=== PATIENT | male | born 1960 | race Caucasian/White ===

== ENCOUNTER 2018-10-24 10:51 | Outpatient (REF) | payer BC, SELFPAY ==
[2018-10-24 22:20] LABS: Anion Gap 12.2 mmol/L (3-11); BUN 13 mg/dL (7-18); CO2 24.8 mmol/L (21.0-32.0); CREATININE 0.76 mg/dL (0.70-1.30); Calcium 9.9 mg/dL (8.5-10.1); Chloride 103 mmol/L (98-107); Glucose 106 mg/dL (70-100); Potassium 4.1 mmol/L (3.5-5.1); Sodium 140 mmol/L (136-145)
== END 2018-10-24 11:11 ==
LOC: NCHCN 10:51
PROVIDERS: PCP Nurse Practitioner Family; Visit Provider Registered Nurse
DX: I10 Essential (primary) hypertension (principal)
CPT/HCPCS: 80048

== ENCOUNTER 2019-05-22 10:21 | Outpatient (REF) | payer BC, SELFPAY ==
[2019-05-22 22:48] LABS: Anion Gap 12.3 mmol/L (3-11); BUN 19 mg/dL (7-18); CO2 26.7 mmol/L (21.0-32.0); CREATININE 0.84 mg/dL (0.70-1.30); Calcium 9.6 mg/dL (8.5-10.1); Chloride 104 mmol/L (98-107); Glucose 149 mg/dL (74-106); Potassium 3.9 mmol/L (3.5-5.1); Sodium 143 mmol/L (136-145)
== END 2019-05-22 10:41 ==
LOC: NCHCN 10:21
PROVIDERS: PCP Nurse Practitioner Family; Visit Provider Registered Nurse
DX: E66.9 Obesity, unspecified (principal)
CPT/HCPCS: 80048

== ENCOUNTER 2019-09-20 20:13 | Outpatient (REF) | payer BC, SELFPAY ==
[2019-09-20 21:06] LABS: Uric Acid 6.5 mg/dL (3.5-7.2)
== END 2019-09-20 20:33 ==
LOC: NCHCN 20:13
PROVIDERS: PCP Nurse Practitioner Family; Visit Provider Internal Medicine
DX: M77.9 Enthesopathy, unspecified (principal)
CPT/HCPCS: 84550

== ENCOUNTER 2020-12-24 10:46 | Outpatient (REF) | payer BC, SELFPAY ==
[2020-12-24 14:25] LABS: COMMENT (LAB VIEW ONLY) 55.86 mg/dL; Microalb ug/mg Crea 16.3 ug/mg Cr
== END 2020-12-24 10:47 | disposition home or self-care (01) ==
LOC: NCHCN 10:46
PROVIDERS: PCP Nurse Practitioner Family; Visit Provider Registered Nurse
DX: E11.9 Type 2 diabetes mellitus without complications (principal)
CPT/HCPCS: 82043; 82570

== ENCOUNTER 2020-12-30 15:09 | Outpatient (REF) | payer BC, SELFPAY ==
[2020-12-30 13:24] LABS: Calculated LDL 56 mg/dL (<100); Cholesterol 119 mg/dL (<200); HDL Cholesterol 31 mg/dL (40-60); Triglyceride 160 mg/dL (<150)
[2020-12-30 13:43] LABS: Hemoglobin A1C 7.6 % (<5.7)
== END 2020-12-30 15:10 | disposition home or self-care (01) ==
LOC: NCHCN 15:09
PROVIDERS: PCP Nurse Practitioner Family; Visit Provider Registered Nurse
DX: E78.5 Hyperlipidemia, unspecified (principal); E11.9 Type 2 diabetes mellitus without complications; I10 Essential (primary) hypertension
CPT/HCPCS: 80061; 83036

== ENCOUNTER 2021-06-17 11:11 | Outpatient (REF) | payer BC, SELFPAY ==
[2021-06-17 15:15] LABS: Albumin 4.2 g/dL (3.4-5.0); Alkaline Phosphatase 170 U/L (46-116); Anion Gap 12.3 mmol/L (3-11); BUN 24 mg/dL (7-18); Bilirubin, Total 0.5 mg/dL (0.2-1.0); CO2 26.7 mmol/L (21.0-32.0); CREATININE 0.9 mg/dL (0.70-1.30); Calcium 9.6 mg/dL (8.5-10.1); Chloride 103 mmol/L (98-107); Glucose 171 mg/dL (74-106); Potassium 3.6 mmol/L (3.5-5.1); Sodium 142 mmol/L (136-145); Total Protein 7.8 g/dL (6.4-8.2)
[2021-06-17 15:48] LABS: ALT 108 U/L (16-63); AST 46 U/L (15-37)
== END 2021-06-17 11:12 | disposition home or self-care (01) ==
LOC: NCHCN 11:11
PROVIDERS: PCP Nurse Practitioner Family; Visit Provider Registered Nurse
DX: I10 Essential (primary) hypertension (principal); E66.9 Obesity, unspecified
CPT/HCPCS: 80053

== ENCOUNTER 2021-07-01 17:05 | Outpatient (REF) | payer BC, SELFPAY ==
[2021-07-01 22:09] LABS: Anion Gap 12.1 mmol/L (3-11); BUN 20 mg/dL (7-18); CO2 27.9 mmol/L (21.0-32.0); CREATININE 0.8 mg/dL (0.70-1.30); Calcium 9.8 mg/dL (8.5-10.1); Chloride 102 mmol/L (98-107); Glucose 91 mg/dL (74-106); Sodium 142 mmol/L (136-145)
[2021-07-01 22:26] LABS: Potassium 2.7 mmol/L (3.5-5.1)
== END 2021-07-01 17:06 | disposition home or self-care (01) ==
LOC: NCHCN 17:05
PROVIDERS: PCP Nurse Practitioner Family; Visit Provider Registered Nurse
DX: E11.9 Type 2 diabetes mellitus without complications (principal); I10 Essential (primary) hypertension; R74.8 Abnormal levels of other serum enzymes
CPT/HCPCS: 80048

== ENCOUNTER 2021-07-03 20:17 | Outpatient (REF) | payer BC, SELFPAY ==
[2021-07-03 20:54] LABS: Anion Gap 11.5 mmol/L (3-11); BUN 21 mg/dL (7-18); CO2 27.5 mmol/L (21.0-32.0); CREATININE 0.9 mg/dL (0.70-1.30); Calcium 9.9 mg/dL (8.5-10.1); Chloride 105 mmol/L (98-107); Glucose 96 mg/dL (74-106); Potassium 3.2 mmol/L (3.5-5.1); Sodium 144 mmol/L (136-145)
== END 2021-07-03 20:18 | disposition home or self-care (01) ==
LOC: NCHCN 20:17
PROVIDERS: PCP Nurse Practitioner Family; Visit Provider Registered Nurse
DX: E87.6 Hypokalemia (principal)
CPT/HCPCS: 80048

== ENCOUNTER 2021-07-22 18:08 | Outpatient (REF) | payer BC, SELFPAY ==
[2021-07-22 20:52] LABS: Anion Gap 9.5 mmol/L (3-11); BUN 22 mg/dL (7-18); CO2 30.5 mmol/L (21.0-32.0); CREATININE 0.9 mg/dL (0.70-1.30); Calcium 9.9 mg/dL (8.5-10.1); Chloride 104 mmol/L (98-107); Glucose 98 mg/dL (74-106); Potassium 3.2 mmol/L (3.5-5.1); Sodium 144 mmol/L (136-145)
== END 2021-07-22 18:09 | disposition home or self-care (01) ==
LOC: NCHCN 18:08
PROVIDERS: PCP Nurse Practitioner Family; Visit Provider Registered Nurse
DX: E87.6 Hypokalemia (principal)
CPT/HCPCS: 80048

== ENCOUNTER 2021-09-16 18:05 | Outpatient (REF) | payer BC, SELFPAY ==
[2021-09-16 23:12] LABS: Albumin 4.3 g/dL (3.4-5.0); Alkaline Phosphatase 124 U/L (46-116); Anion Gap 8.4 mmol/L (3-11); BUN 23 mg/dL (7-18); Bilirubin, Total 0.6 mg/dL (0.2-1.0); CO2 28.6 mmol/L (21.0-32.0); CREATININE 0.8 mg/dL (0.70-1.30); Calcium 9.5 mg/dL (8.5-10.1); Chloride 103 mmol/L (98-107); Glucose 131 mg/dL (74-106); Potassium 3.1 mmol/L (3.5-5.1); Sodium 140 mmol/L (136-145); Total Protein 7.3 g/dL (6.4-8.2)
[2021-09-16 23:32] LABS: ALT 74 U/L (16-63); AST 50 U/L (15-37)
== END 2021-09-16 18:06 | disposition home or self-care (01) ==
LOC: NCHCN 18:05
PROVIDERS: PCP Nurse Practitioner Family; Visit Provider Registered Nurse
DX: E11.9 Type 2 diabetes mellitus without complications (principal); E87.6 Hypokalemia; I10 Essential (primary) hypertension; R74.8 Abnormal levels of other serum enzymes
CPT/HCPCS: 80053

== ENCOUNTER 2021-09-28 15:42 | Outpatient (REF) | payer BC, SELFPAY ==
[2021-09-28 21:32] LABS: Potassium 3.2 mmol/L (3.5-5.1)
== END 2021-09-28 15:43 | disposition home or self-care (01) ==
LOC: NCHCN 15:42
PROVIDERS: PCP Nurse Practitioner Family; Visit Provider Registered Nurse
DX: E87.6 Hypokalemia (principal)
CPT/HCPCS: 84132

== ENCOUNTER 2021-10-29 16:26 | Outpatient (REF) | payer BC, SELFPAY ==
[2021-10-29 20:23] LABS: Potassium 3.2 mmol/L (3.5-5.1)
== END 2021-10-29 16:27 | disposition home or self-care (01) ==
LOC: NCHCN 16:26
PROVIDERS: PCP Nurse Practitioner Family; Visit Provider Registered Nurse
DX: E87.6 Hypokalemia (principal)
CPT/HCPCS: 84132

== ENCOUNTER 2021-11-19 18:54 | Outpatient (REF) | payer BC, SELFPAY ==
[2021-11-19 14:59] LABS: Anion Gap 9.9 mmol/L (3-11); BUN 21 mg/dL (7-18); CO2 27.1 mmol/L (21.0-32.0); CREATININE 0.9 mg/dL (0.70-1.30); Calcium 9.5 mg/dL (8.5-10.1); Chloride 102 mmol/L (98-107); Glucose 148 mg/dL (74-106); Potassium 3.4 mmol/L (3.5-5.1); Sodium 139 mmol/L (136-145)
== END 2021-11-19 18:55 | disposition home or self-care (01) ==
LOC: NCHCN 18:54
PROVIDERS: PCP Nurse Practitioner Family; Visit Provider Registered Nurse
DX: E87.6 Hypokalemia (principal)
CPT/HCPCS: 80048

== ENCOUNTER 2021-12-01 17:25 | Outpatient (REF) | payer BC, SELFPAY ==
[2021-12-03 10:16] LABS: COVID-19 RT-PCR UVMMC Result Negative (Negative)
== END 2021-12-01 17:26 | disposition home or self-care (01) ==
LOC: NCHCN 17:25
PROVIDERS: PCP Nurse Practitioner Family; Visit Provider Registered Nurse
DX: Z20.822 Contact with and (suspected) exposure to COVID-19 (principal); J06.9 Acute upper respiratory infection, unspecified
CPT/HCPCS: U0003

== ENCOUNTER 2021-12-23 18:20 | Outpatient (REF) | payer BC, SELFPAY ==
[2021-12-23 22:06] LABS: ALT 72 U/L (16-63); AST 44 U/L (15-37); Albumin 4.3 g/dL (3.4-5.0); Alkaline Phosphatase 105 U/L (46-116); Anion Gap 10.9 mmol/L (3-11); BUN 21 mg/dL (7-18); Bilirubin, Total 0.6 mg/dL (0.2-1.0); CO2 28.1 mmol/L (21.0-32.0); CREATININE 0.8 mg/dL (0.70-1.30); Calcium 9.3 mg/dL (8.5-10.1); Chloride 103 mmol/L (98-107); Glucose 94 mg/dL (74-106); Potassium 3.2 mmol/L (3.5-5.1); Sodium 142 mmol/L (136-145); Total Protein 7.8 g/dL (6.4-8.2)
[2021-12-23 22:14] LABS: COMMENT (LAB VIEW ONLY) 103.85 mg/dL; Microalb ug/mg Crea 26.8 ug/mg Cr
[2021-12-23 22:16] LABS: Hemoglobin A1C 6.3 % (<5.7)
== END 2021-12-23 18:21 | disposition home or self-care (01) ==
LOC: NCHCN 18:20
PROVIDERS: PCP Nurse Practitioner Family; Visit Provider Registered Nurse
DX: I10 Essential (primary) hypertension (principal); E11.9 Type 2 diabetes mellitus without complications; E66.9 Obesity, unspecified
CPT/HCPCS: 80053; 82043; 82570; 83036

== ENCOUNTER 2022-01-13 15:16 | Outpatient (REF) | payer BC, SELFPAY ==
[2022-01-13 21:24] LABS: Anion Gap 5.1 mmol/L (3-11); BUN 20 mg/dL (7-18); CO2 28.9 mmol/L (21.0-32.0); CREATININE 0.9 mg/dL (0.70-1.30); Calcium 9.3 mg/dL (8.5-10.1); Chloride 105 mmol/L (98-107); Estimated GFR 98.38 (mL/min/1.73m2); Glucose 89 mg/dL (74-106); Potassium 3.8 mmol/L (3.5-5.1); Sodium 139 mmol/L (136-145)
== END 2022-01-13 15:17 | disposition home or self-care (01) ==
LOC: NCHCN 15:16
PROVIDERS: PCP Nurse Practitioner Family; Visit Provider Registered Nurse
DX: E87.6 Hypokalemia (principal)
CPT/HCPCS: 80048

== ENCOUNTER 2022-02-22 15:30 | Outpatient (REF) | payer BC, SELFPAY ==
[2022-02-22 21:22] LABS: Potassium 3.9 mmol/L (3.5-5.1)
== END 2022-02-22 15:31 | disposition home or self-care (01) ==
LOC: NCHCN 15:30
PROVIDERS: PCP Nurse Practitioner Family; Visit Provider Registered Nurse
DX: E87.6 Hypokalemia (principal)
CPT/HCPCS: 84132

== ENCOUNTER 2022-07-14 17:01 | Outpatient (REF) | payer BC, SELFPAY ==
[2022-07-14 21:01] LABS: ALT 69 U/L (16-63); AST 38 U/L (15-37); Albumin 4.3 g/dL (3.4-5.0); Alkaline Phosphatase 141 U/L (46-116); Anion Gap 7.6 mmol/L (3-11); BUN 17 mg/dL (7-18); Bilirubin, Total 0.6 mg/dL (0.2-1.0); CO2 28.4 mmol/L (21.0-32.0); CREATININE 0.8 mg/dL (0.70-1.30); Calcium 9.7 mg/dL (8.5-10.1); Chloride 105 mmol/L (98-107); Estimated GFR 101.32 (mL/min/1.73m2); Glucose 104 mg/dL (74-106); Potassium 3.8 mmol/L (3.5-5.1); Sodium 141 mmol/L (136-145); Total Protein 7.8 g/dL (6.4-8.2)
== END 2022-07-14 17:02 | disposition home or self-care (01) ==
LOC: NCHCN 17:01
PROVIDERS: PCP Nurse Practitioner Family; Visit Provider Registered Nurse
DX: E87.6 Hypokalemia (principal); E66.8 Other obesity
CPT/HCPCS: 80053

== ENCOUNTER 2022-10-13 18:09 | Outpatient (REF) | payer BC, SELFPAY ==
[2022-10-13 21:55] LABS: COMMENT (LAB VIEW ONLY) 121.11 mg/dL
== END 2022-10-13 18:10 | disposition home or self-care (01) ==
LOC: NCHCN 18:09
PROVIDERS: PCP Nurse Practitioner Family; Visit Provider Registered Nurse
DX: E11.9 Type 2 diabetes mellitus without complications (principal)
CPT/HCPCS: 82043; 82570

== ENCOUNTER 2022-11-17 16:56 | Outpatient (REF) | payer BC, SELFPAY ==
[2022-11-17 21:34] LABS: ALT 88 U/L (16-63); Albumin 4.2 g/dL (3.4-5.0); Alkaline Phosphatase 153 U/L (46-116); Anion Gap 10.4 mmol/L (3-11); BUN 22 mg/dL (7-18); Bilirubin, Total 0.6 mg/dL (0.2-1.0); CO2 28.6 mmol/L (21.0-32.0); CREATININE 1.1 mg/dL (0.70-1.30); Chloride 103 mmol/L (98-107); Estimated GFR 76.85 (mL/min/1.73m2); Potassium 3.8 mmol/L (3.5-5.1); Sodium 142 mmol/L (136-145); Total Protein 8.5 g/dL (6.4-8.2)
[2022-11-17 21:49] LABS: Calcium 10.1 mg/dL (8.5-10.1); Glucose 189 mg/dL (74-106)
[2022-11-17 23:21] LABS: AST 53 U/L (15-37)
[2022-11-18 20:13] LABS: PSA, Screening 0.8 ng/mL (<=4.5)
== END 2022-11-17 16:57 | disposition home or self-care (01) ==
LOC: NCHCN 16:56
PROVIDERS: PCP Nurse Practitioner Family; Visit Provider Registered Nurse
DX: I10 Essential (primary) hypertension (principal); Z12.5 Encounter for screening for malignant neoplasm of prostate; E87.6 Hypokalemia
CPT/HCPCS: 80053; 84153

== ENCOUNTER 2023-02-09 17:54 | Outpatient (REF) | payer BC, SELFPAY ==
[2023-02-09 23:37] LABS: ALT 98 U/L (16-63); AST 56 U/L (15-37); Albumin 4.3 g/dL (3.4-5.0); Alkaline Phosphatase 123 U/L (46-116); Anion Gap 8.3 mmol/L (3-11); BUN 21 mg/dL (7-18); Bilirubin, Total 0.4 mg/dL (0.2-1.0); CO2 25.7 mmol/L (21.0-32.0); Calcium 10.4 mg/dL (8.5-10.1); Chloride 104 mmol/L (98-107); Cholesterol 212 mg/dL (<200); Estimated GFR 85.63 (mL/min/1.73m2); Glucose 111 mg/dL (74-106); HDL Cholesterol 33 mg/dL (40-60); Potassium 3.7 mmol/L (3.5-5.1); Sodium 138 mmol/L (136-145); Total Protein 8.4 g/dL (6.4-8.2); Triglyceride 675 mg/dL (<150)
[2023-02-09 23:50] LABS: LDL CHOLESTEROL 75 mg/dL (<100)
== END 2023-02-09 17:55 | disposition home or self-care (01) ==
LOC: NCHCN 17:54
PROVIDERS: PCP Nurse Practitioner Family; Visit Provider Family Medicine
DX: I10 Essential (primary) hypertension (principal); E78.5 Hyperlipidemia, unspecified; E78.1 Pure hyperglyceridemia
CPT/HCPCS: 80053; 80061; 83721

== ENCOUNTER 2023-06-08 18:15 | Outpatient (REF) | payer BC, SELFPAY ==
[2023-06-08 22:09] LABS: ALT 126 U/L (16-63); AST 87 U/L (15-37); Albumin 4.4 g/dL (3.4-5.0); Alkaline Phosphatase 106 U/L (46-116); Anion Gap 11.5 mmol/L (3-11); BUN 22 mg/dL (7-18); Bilirubin, Total 0.6 mg/dL (0.2-1.0); CO2 26.5 mmol/L (21.0-32.0); CREATININE 0.9 mg/dL (0.70-1.30); Calcium 10.8 mg/dL (8.5-10.1); Chloride 100 mmol/L (98-107); Estimated GFR 97.17 (mL/min/1.73m2); Glucose 118 mg/dL (74-106); Potassium 3.7 mmol/L (3.5-5.1); Sodium 138 mmol/L (136-145); Total Protein 8.5 g/dL (6.4-8.2)
== END 2023-06-08 18:16 | disposition home or self-care (01) ==
LOC: NCHCN 18:15
PROVIDERS: PCP Nurse Practitioner Family; Visit Provider Family Medicine
DX: I10 Essential (primary) hypertension (principal)
CPT/HCPCS: 80053

== ENCOUNTER 2023-07-12 17:15 | Outpatient (REF) | payer BC, SELFPAY ==
[2023-07-12 18:00] LABS: Anion Gap 10.2 mmol/L (3-11); BUN 19 mg/dL (7-18); CO2 27.8 mmol/L (21.0-32.0); CREATININE 0.9 mg/dL (0.70-1.30); Calcium 10.4 mg/dL (8.5-10.1); Chloride 98 mmol/L (98-107); Estimated GFR 97.17 (mL/min/1.73m2); Glucose 230 mg/dL (74-106); Potassium 4.1 mmol/L (3.5-5.1); Sodium 136 mmol/L (136-145)
== END 2023-07-12 17:16 | disposition home or self-care (01) ==
LOC: NCHCN 17:15
PROVIDERS: PCP Nurse Practitioner Family; Visit Provider Physician Assistant
DX: Z01.818 Encounter for other preprocedural examination (principal)
CPT/HCPCS: 80048

== ENCOUNTER 2023-08-10 17:02 | Outpatient (REF) | payer BC, SELFPAY ==
[2023-08-10 21:16] LABS: Abs Immature Grans 0.06 10^3/uL (0.0-0.06); Absolute Basophil Count 0.05 10^3/uL (0.0-0.2); Absolute Eosinophil Count 0.19 10^3/uL (0.0-0.7); Absolute Lymphocyte Count 1.75 10^3/uL (1.2-3.4); Absolute Neutrophil Count 2.96 10^3/uL (1.2-6.7); Basophils % 0.9; Eosinophils % 3.4; HCT 42.8 % (40.0-50.0); Immature Grans % 1.1; Lymphocytes % 31.8; MCH 31.8 pg (27.0-33.0); MCHC 37.4 % (32.0-36.0); MCV 85 fL (80-95); MPV 11.3 fL (8.0-11.0); Monocytes % 9.1; Neutrophils % 53.7; Platelet Count 216 10^3/uL (130-400); RBC 5.03 10^6/uL (4.36-5.78); RDW 14.4 % (11.8-14.1); RDW-SD 44.4 fL; WBC 5.51 10^3/uL (4.4-10.8)
[2023-08-10 22:37] LABS: ALT 117 U/L (16-63); AST 91 U/L (15-37); Albumin 4.1 g/dL (3.4-5.0); Alkaline Phosphatase 173 U/L (46-116); Anion Gap 13.1 mmol/L (3-11); BUN 23 mg/dL (7-18); Bilirubin, Total 0.5 mg/dL (0.2-1.0); CO2 24.9 mmol/L (21.0-32.0); CREATININE 0.9 mg/dL (0.70-1.30); Calcium 10.5 mg/dL (8.5-10.1); Chloride 97 mmol/L (98-107); Estimated GFR 97.17 (mL/min/1.73m2); Ferritin 899 ng/mL (26-388); Glucose 343 mg/dL (74-106); Potassium 4.3 mmol/L (3.5-5.1); Sodium 135 mmol/L (136-145); Total Protein 8.5 g/dL (6.4-8.2)
[2023-08-10 22:48] LABS: Iron 73 ug/dL (65-175); Total Iron Binding Capacity 335 ug/dL (250-450); Transferrin Sat 22 % (20-55)
[2023-08-11 00:36] LABS: Hemoglobin A1C 10.2 % (<5.7)
[2023-08-11 18:44] LABS: Hepatitis A Antibody IgM Negative (Negative); Hepatitis B Core Antibody Negative (Negative); Hepatitis B surface Ag Negative (Negative); Hepatitis C Ab w Rflx HCV PCR Negative (Negative)
== END 2023-08-10 17:03 | disposition home or self-care (01) ==
LOC: NCHCN 17:02
PROVIDERS: PCP Nurse Practitioner Family; Referring Provider Family Medicine; Visit Provider Family Medicine
DX: I10 Essential (primary) hypertension (principal); R74.01 Elevation of levels of liver transaminase levels
CPT/HCPCS: 80053; 86704; 86709; 86803; 87340; 82728; 83036; 83540; 83550; 85025

== ENCOUNTER 2023-09-21 17:56 | Outpatient (REF) | payer BC, SELFPAY ==
[2023-09-21 21:42] LABS: ALT 59 U/L (16-63); AST 33 U/L (15-37); Albumin 3.3 g/dL (3.4-5.0); Alkaline Phosphatase 157 U/L (46-116); Anion Gap 9.6 mmol/L (3-11); BUN 24 mg/dL (7-18); Bilirubin, Total 0.3 mg/dL (0.2-1.0); CO2 27.4 mmol/L (21.0-32.0); CREATININE 1.4 mg/dL (0.70-1.30); Calcium 9.7 mg/dL (8.5-10.1); Chloride 103 mmol/L (98-107); Estimated GFR 57.18 (mL/min/1.73m2); Glucose 277 mg/dL (74-106); Lipase 60 U/L (16-77); Potassium 4.4 mmol/L (3.5-5.1); Sodium 140 mmol/L (136-145); Total Protein 7.3 g/dL (6.4-8.2); Triglyceride 883 mg/dL (<150)
[2023-09-21 21:59] LABS: LDL CHOLESTEROL 111 mg/dL (<100)
== END 2023-09-21 17:57 | disposition home or self-care (01) ==
LOC: NCHCN 17:56
PROVIDERS: PCP Nurse Practitioner Family; Visit Provider Family Medicine
DX: K85.90 Acute pancreatitis without necrosis or infection, unspecified (principal); E11.9 Type 2 diabetes mellitus without complications; E78.5 Hyperlipidemia, unspecified
CPT/HCPCS: 80053; 83690; 83721; 83036; 84478

== ENCOUNTER 2023-12-21 17:29 | Outpatient (REF) | payer BC, SELFPAY ==
[2023-12-21 22:43] LABS: COMMENT (LAB VIEW ONLY) 107.07 mg/dL; Microalb ug/mg Crea 18.1 ug/mg Cr
== END 2023-12-21 17:30 | disposition home or self-care (01) ==
LOC: NCHCN 17:29
PROVIDERS: PCP Nurse Practitioner Family; Visit Provider Family Medicine
DX: E11.9 Type 2 diabetes mellitus without complications (principal)
CPT/HCPCS: 82043; 82570

== ENCOUNTER 2024-03-21 12:16 | Outpatient (REF) | payer BC, SELFPAY ==
[2024-03-21 15:42] LABS: ALT 48 U/L (16-63); AST 31 U/L (15-37); Albumin 4.3 g/dL (3.4-5.0); Alkaline Phosphatase 115 U/L (46-116); Anion Gap 9.7 mmol/L (3-11); BUN 25 mg/dL (7-18); Bilirubin, Total 0.41 mg/dL (0.2-1.0); CO2 27.3 mmol/L (21.0-32.0); CREATININE 0.9 mg/dL (0.70-1.30); Calcium 10.4 mg/dL (8.5-10.1); Calculated LDL 49 mg/dL (<100); Chloride 103 mmol/L (98-107); Cholesterol 148 mg/dL (<200); Estimated GFR 96.57 (mL/min/1.73m2); Glucose 165 mg/dL (74-106); HDL Cholesterol 35 mg/dL (40-60); Lipase 23 U/L (16-77); Potassium 4.3 mmol/L (3.5-5.1); Sodium 140 mmol/L (136-145); Triglyceride 323 mg/dL (<150)
[2024-03-21 16:38] LABS: Hemoglobin A1C 6.4 % (<5.7)
== END 2024-03-21 12:17 | disposition home or self-care (01) ==
LOC: NCHCN 12:16
PROVIDERS: PCP Family Medicine; Visit Provider Family Medicine
DX: I10 Essential (primary) hypertension (principal); E78.5 Hyperlipidemia, unspecified; E11.9 Type 2 diabetes mellitus without complications
CPT/HCPCS: 80053; 80061; 83690; 83036

== ENCOUNTER 2024-12-26 14:44 | Outpatient (REF) | payer BC, SELFPAY ==
[2024-12-27 17:06] LABS: COMMENT (LAB VIEW ONLY) 79.54 mg/dL; Microalb ug/mg Crea 37.1 ug/mg Cr
== END 2024-12-26 14:45 | disposition home or self-care (01) ==
LOC: NCHCN 14:44
PROVIDERS: PCP Family Medicine; Visit Provider Family Medicine
DX: E11.9 Type 2 diabetes mellitus without complications (principal)
CPT/HCPCS: 82043; 82570